=== PATIENT | male | born 1990 | race Caucasian/White ===

== ENCOUNTER 2018-04-18 17:21 | Emergency (ER) | payer SELFPAY ==
[2018-04-18 17:23] VITALS: BP 169/109; PULSE 102; RESP 17; TEMP 37.3; O2SAT 99; BMI 28.8
[2018-04-18 17:53] VITALS: BP 146/115; PULSE 88; RESP 16; O2SAT 98
--- NOTE | 2018-04-18 18:14 | ED.VISSUMM ---
- ER Visit Summary Date of Service: 04/18/18 Chief Complaint: Hypertension, dizziness History of Present Illness: The patient is a 27 M who complained of dizziness at work. He was pushing carts outside in the heat. Coworkers took his blood pressure and it was 169/148. He states he has a history of high blood pressure but has been off his lisinopril and clonidine for over a year due to insurance purposes. He states that he feels better but still has some very mild dizziness. Physical Examination: Vital signs reviewed. Blood pressure is 139/119. HEENT exam unremarkable. Heart is regular rate and rhythm without murmurs. Lungs are clear to auscultation. Abdomen is soft and nontender. Extremities reveal no edema. Skin exam normal. Neurologic exam normal. Test Results: None indicated Emergency Department Course and Treatment: Patient's symptoms are improving. I feel that a combination of being off of his blood pressure medications and being in the extreme heat caused the dizziness. No imaging necessary. I will start him back on his lisinopril. I do not feel that starting him back on the clonidine would be prudent as of yet because his blood pressure is only mildly elevated. He will follow-up with his PCP who can recheck his blood pressure and I will give him 1 dose of lisinopril here Treatment Plan: [] Disposition: Discharge Impression: Hypertension, dizziness This note was generated with [employer] dictation software. It may contain incorrect words, spelling, and punctuation that were not noted in review of the chart prior to signing ED Disposition - Plan for ED Patient: Chief Complaint: Hypertension Referrals: Edd Sears DO [Primary Care Provider] -
--- NOTE | 2018-04-18 18:15 | ED.DEP ---
ED Disposition - Plan for ED Patient: Disposition: Home or Assisted Living Chief Complaint: Hypertension Instructions: ED HTN Established Prescriptions: Lisinopril [Prinivil] 10 mg PO DAILY #30 tab Referrals: Edd Sears DO [Primary Care Provider] -
[2018-04-18] MEDS: Lisinopril 10 MG Tablet PO (18:25)
[2018-04-18 18:28] VITALS: BP 139/92; PULSE 71; RESP 16; O2SAT 98
== END 2018-04-18 18:32 | disposition home or self-care (01) ==
LOC: ED 18:30
PROVIDERS: Emergency Provider Emergency Medicine; Family Provider Family Medicine; PCP Family Medicine
DX: I10 Essential (primary) hypertension (principal); R42 Dizziness and giddiness
CPT/HCPCS: 99283